=== PATIENT | female | born 1970 | race Caucasian/White ===

== ENCOUNTER 2020-07-16 11:32 | Emergency (ER) | payer BC ==
[~2020-07-16] VITALS: Ht 165.1 cm; Wt 96.2 kg
[~2020-07-16 11:32] MED LIST: ATIVAN0.5 M1 PO; CIPRO500 MG; FLA250; NOR10T PO; ZOF4 PO
[2020-07-16 12:03] VITALS: Ht 165.1 cm; Wt 96.2 kg
[2020-07-16 13:27] VITALS: BP 126/88
== END 2020-07-16 13:27 | disposition home or self-care (01) ==
LOC: ED 11:32
DX: S63.501A Unspecified sprain of right wrist, initial encounter (principal); Z98.890 Other specified postprocedural states; Z90.89 Acquired absence of other organs; Z90.710 Acquired absence of both cervix and uterus; W18.30XA Fall on same level, unspecified, initial encounter; Y93.89 Activity, other specified; Y92.89 Other specified places as the place of occurrence of the external cause; Y99.8 Other external cause status